=== PATIENT | female | born 1940 | race Caucasian/White ===

== ENCOUNTER 2019-02-23 05:45 | Day surgery (SDC) | payer OTHER ==
[~2019-02-23 05:45] MED LIST: ADULT ASPIRIN81 MG PO; ALBUTEROL0.63 MG/3 IH; ATENOLOL50 MG PO; ATORVASTATIN CA40 MG PO; FAMOTIDINE40 MG PO; GLYCOTROL CAPS1 EACH PO; IBANDRONATE PO; INDAPAMIDE2.5 MG PO; RESPIMAT PO; SYNTHROID150 MCG PO; SYNTHROID75 MCG PO; ZINC LOZENGES1 EACH PO
[2019-02-23] MEDS ORDERED: PERCOCET 5-3251 EACH PO (08:30)
== END 2019-02-23 10:05 | disposition home or self-care (01) ==
LOC: CIR.AMB 05:45
DX: D35.1 Benign neoplasm of parathyroid gland (principal)